=== PATIENT | female | born 1960 | race Caucasian/White ===

== ENCOUNTER 2016-11-17 12:50 | Emergency (ER) | payer SELFPAY ==
[~2016-11-17] VITALS: Ht 162.6 cm; Wt 106.3 kg
[2016-11-17] MEDS ORDERED: FAMOTIDINE 20 MG/2 ML IVPush ONE (13:30)
[2016-11-17] MEDS ORDERED: ACETAMINOPHEN 500 MG TABLET PO ONE (13:30)
[2016-11-17] MEDS ORDERED: methylPREDNISolone SOD SUCC 125 MG/2 ML IVPush ONE (13:30)
[2016-11-17] MEDS ORDERED: DIPHENHYDRAMINE 50 MG/ML, 1ML IVPush ONE (13:30)
[2016-11-17] MEDS ORDERED: SODIUM CHLORIDE 0.9% 1,000ML IVBOLUS ONE (13:30)
[2016-11-17] MEDS ORDERED: SODIUM CHLORIDE FLUSH 10ML SYR IVF ONE (13:30)
[2016-11-17] MEDS ORDERED: FAMOTIDINE 20 MG/2 ML ONE (13:39)
[2016-11-17] MEDS ORDERED: methylPREDNISolone SOD SUCC 125 MG/2 ML ONE (13:39)
[2016-11-17] MEDS ORDERED: ACETAMINOPHEN 500 MG TABLET ONE (13:39)
[2016-11-17] MEDS ORDERED: DIPHENHYDRAMINE 50 MG/ML, 1ML ONE (13:39)
[2016-11-17 14:11] LABS: BLOOD UREA NITROGEN 11 mg/dL (7-18)
[2016-11-17 14:17] LABS: HEMOGLOBIN 15.2 g/dL (11.7-16.4)
[2016-11-17] MEDS ORDERED: CEPHALEXIN 500 MG CAPSULE ONE (15:21)
[2016-11-17] MEDS ORDERED: CEPHALEXIN 500 MG CAPSULE PO ONE (15:30)
[2016-11-17 15:51] VITALS: BP 144/81
== END 2016-11-17 15:53 | disposition home or self-care (01) ==
LOC: ED 14:27
DX: T78.40XA Allergy, unspecified, initial encounter (principal); I10 Essential (primary) hypertension
CPT/HCPCS: 36415; 80048; 82040; 85025; 93005; 96361; 96374; 96375; 99285; J1200; J2930; J7030; S0028